=== PATIENT | male | born 1980 | race Caucasian/White ===

== ENCOUNTER → 2018-07-21 | Outpatient (CLI) | payer OTHER | LOC: MHCPAIN 13:19 | DX: G89.29 Other chronic pain (principal); M47.812 Spondylosis without myelopathy or radiculopathy, cervical region | CPT/HCPCS: G0463 ==

== ENCOUNTER → 2018-09-04 | Outpatient (CLI) | payer OTHER | LOC: MHCPAIN 09-03 12:41 | DX: M47.812 Spondylosis without myelopathy or radiculopathy, cervical region (principal); G89.29 Other chronic pain | CPT/HCPCS: G0463 ==

== ENCOUNTER → 2018-09-10 | Outpatient (CLI) | payer OTHER | LOC: MHCPAIN 13:06 | DX: G89.29 Other chronic pain (principal); M47.812 Spondylosis without myelopathy or radiculopathy, cervical region | CPT/HCPCS: G0463 ==

== ENCOUNTER → 2018-09-11 | Outpatient (CLI) | payer OTHER | LOC: MHCPAIN 12:40 | DX: M47.812 Spondylosis without myelopathy or radiculopathy, cervical region (principal); M54.12 Radiculopathy, cervical region; M50.90 Cervical disc disorder, unspecified, unspecified cervical region ==

== ENCOUNTER → 2018-10-16 | Outpatient (CLI) | payer OTHER | LOC: MHCPAIN 07:33 | DX: M47.812 Spondylosis without myelopathy or radiculopathy, cervical region (principal); G89.29 Other chronic pain | CPT/HCPCS: G0463; J1100; J2250; J3010 ==

== ENCOUNTER → 2018-12-16 | Outpatient (CLI) | payer OTHER | LOC: MHCPAIN 09:55 | DX: G89.29 Other chronic pain (principal); M47.812 Spondylosis without myelopathy or radiculopathy, cervical region | CPT/HCPCS: G0463 ==

== ENCOUNTER → 2019-04-22 | Outpatient (CLI) | payer OTHER | LOC: MHCPAIN 07:58 | DX: G89.29 Other chronic pain (principal); M47.812 Spondylosis without myelopathy or radiculopathy, cervical region | CPT/HCPCS: G0463 ==

== ENCOUNTER → 2020-06-14 | Outpatient (CLI) | payer OTHER | LOC: MHCPAIN 11:01 | DX: M47.812 Spondylosis without myelopathy or radiculopathy, cervical region (principal); M54.2 Cervicalgia; G89.29 Other chronic pain | CPT/HCPCS: G0463 ==

== ENCOUNTER → 2020-06-30 | Outpatient (CLI) | payer OTHER | LOC: MHCPAIN 09:48 | DX: M47.812 Spondylosis without myelopathy or radiculopathy, cervical region (principal); M54.2 Cervicalgia | CPT/HCPCS: J1100; J3010 ==

== ENCOUNTER → 2020-07-26 | Outpatient (CLI) | payer OTHER | LOC: MHCPAIN 09:01 | DX: M47.812 Spondylosis without myelopathy or radiculopathy, cervical region (principal); M54.2 Cervicalgia; G89.29 Other chronic pain | CPT/HCPCS: G0463 ==